=== PATIENT | female | born 1975 | race Caucasian/White ===

== ENCOUNTER 2021-04-22 10:03 | Emergency (ER) | payer OTHER, SELFPAY ==
[2021-04-22 10:28] VITALS: BP 139/87; PULSE 81; RESP 14; TEMP 36.6; O2SAT 98; BMI 29.1
[2021-04-22 10:41] LABS: COVID19 -Nasal RAPID POSITIVE (Negative)
--- NOTE | 2021-04-22 10:50 | ED_ITS ---
HPI - URI/Sore Throat General Chief Complaint: Upper Respiratory Symptoms Stated Complaint: COVID SYMPTOMS Time Seen by Provider: 04/22/21 10:41 Source: patient Mode of arrival: Family Vehicle Limitations: no limitations History of Present Illness HPI Narrative: Patient is a 46-year-old female with history of hypertension, diabetes is unvaccinated for COVID-19 presenting for concern for COVID. She states that her parents were both tested positive yesterday. She was with them 1 week ago. She started having headache 2 days ago. No cough or shortness of breath. She denies any fever or chills. Related Data Allergies Allergy/AdvReac Type Severity Reaction Status Date / Time No Known Drug Allergies Allergy Verified 04/22/21 10:28 Review of Systems Review of Systems Narrative: GENERAL: Denies chills,fever HEENT: Denies throat pain RESPIRATORY: Denies dyspnea, cough, wheezing CARDIOVASCULAR: Denies chest pain, palpitations GASTROINTESTINAL: Denies nausea, vomiting MUSCULOSKELETAL: Denies extremity pain, injury SKIN: No rash, no laceration, no pruritus NEUROLOGIC: + headache, no numbness tingling or weakness 8 point review of systems is negative except for those stated above and HPI Patient History Social History Smoking Status: Never smoker Smoking Status: Never smoker alcohol intake frequency: 0-2 drinks per day Substance Use Type: does not use Exam Initial Vital Signs Initial Vital Signs: Vital Signs Temperature 97.8 F 04/22/21 10:28 Pulse Rate 81 04/22/21 10:28 Respiratory Rate 14 04/22/21 10:28 Blood Pressure 139/87 04/22/21 10:28 Pulse Oximetry 98 04/22/21 10:28 GENERAL: Well-appearing, well-nourished and in no acute distress. CARDIOVASCULAR: peripheral pulses in tact, cap refill <2 sec RESPIRATORY: No respiratory distress, speaks in full sentences without difficulty EXTREMITIES: Normal range of motion, no clubbing or edema. Neurovascularly intact NEUROLOGICAL: Cranial nerves II through XII grossly intact. Normal gait and speech. SKIN: Warm, dry, no petechiae, no rashes or lesions. Course Orders Ordered: ED Orders 04/22/21 10:15 COVID19 -Nasal swab/Pre-Proc Stat Vital Signs Vital signs: Vital Signs - 8 hr 04/22/21 10:28 04/22/21 11:16 Temperature 97.8 F Pulse Rate 81 76 Respiratory Rate 14 14 Blood Pressure 139/87 160/93 H Pulse Oximetry 98 98 MDM - URI/Sore Throat Lab Data Labs: Lab Results 04/22/21 Range/Units 10:15 SARS-CoV-2 (PCR) Positive H (Negative) MDM Narrative Medical decision making narrative: Patient is positive for COVID O2 sat greater than 90%. I discussed with her home monitoring and when to return to the emergency department Discharge Plan Departure Patient Disposition: Home Clinical Impression: COVID-19 Instructions: DI for COVID-19 (Suspected or Confirmed ) Activity Restrictions/Additional Instructions: YOU HAVE BEEN DIAGNOSED WITH COVID 19 * if you have not yet been vaccinated is still recommended and encouraged that you do so once your infection has passed At home: -Monitor oxygen with pulse oximeter. -Wash hands frequently. -Stay isolated at home please follow the isolation instructions below. -Increase fluid intake. -you may take Tylenol as directed if needed for pain or fever Emergency warning signs for COVID-19: - Difficulty breathing or shortness of breath, oxygen less than 90% - Persistent pain or pressure in the chest - New confusion or inability to arouse - Bluish lips or face CDC Guidelines for home isolation: - Stay away from others - Limit contact with pets and animals: If you must care for a pet, wash your hands before and after interacting with them - Wear a mask while in public all places - Cover your mouth and nose with a tissue when you cough or sneeze. Dispose of tissues in a lined trash can and wash your hands immediately with soap and water for at least 20 seconds. If soap and water are not available, clean hands with alcohol-based hand engine generator assembler that contains at least 60% alcohol. - Clean your hands often with soap and water for at least 20 seconds - Avoid touching your eyes, nose and mouth with unwashed hands - Do not share dishes, drinking glasses, cups, eating utensils, towels, or bedding with other people in your home. After using these items, wash them thoroughly with soap and water or put in the counselor at law. - Clean high-touch surfaces in your isolation area (?sick room? and bathroom) every day; let a caregiver clean and disinfect high-touch surfaces in other areas of the home. Clean the area or item with soap and water or another detergent if it is dirty. Then, use a household disinfectant. Referrals: Gilda Ortega DO [Primary Care Provider] -
[2021-04-22 11:16] VITALS: BP 160/93; PULSE 76; RESP 14; O2SAT 98
== END 2021-04-22 11:17 | disposition home or self-care (01) ==
PROVIDERS: Emergency Provider Emergency Medicine; PCP Family Medicine
DX: U07.1 COVID-19 (principal)
CPT/HCPCS: 87635; 99282; C9803

== ENCOUNTER 2021-07-29 10:55 | Emergency (ER) | payer OTHER, SELFPAY ==
[2021-07-29 11:32] VITALS: TEMP 37.1; BMI 29.2
[2021-07-29 11:38] VITALS: BP 146/85; PULSE 92; RESP 18; TEMP 37.1; O2SAT 100; BMI 29.2
--- NOTE | 2021-07-29 12:59 | PC.NURSE ---
pt is followed by her OB for pain and discomfort and cervical issues. pt states she is prescribed pain meds and a muscle relaxer has not taken any today, but took them yesterday with no relief. pain is worse on the RL abd area and radiating to the R groin
--- NOTE | 2021-07-29 13:10 | ED.GENADULT ---
HPI - General Adult General Chief complaint: Abdominal Pain Stated complaint: pain from lower stomach all the way around Time Seen by Provider: 07/29/21 13:06 Source: patient Mode of arrival: Family Vehicle Limitations: no limitations History of Present Illness HPI narrative: 46-year-old woman with minimal medical history presents with back and low abdominal pain. She initially had some lower abdominal pain and bloating in April of this year. Her doctor at the [facility] did basic blood work pelvic ultrasound treated her with antibiotics and felt that perhaps there is a varicose vein to her cervix that was being irritated. After the antibiotics she notes that she had some vaginal dryness but her pain has returned. Six days ago she began noticing some low abdominal swelling and complaints of her back hurting with the pain being the right flank lower rib area on the right side radiating into the right lower quadrant. Her provider gave her a prescription for cyclobenzaprine and Percocet which has helped somewhat but she is continuing to have significant pain. She has been using stretching, gentle exercise, icing nonsteroidals still not improving. She notes that she is on oral control pills has stopped over the last 2 weeks(she is not currently sexually active) did not have significant withdrawal bleeding and this did not seem to influence any of her pain. She describes no constipation or diarrhea. She is not vomiting or nauseated. No chest pain, palpitation or dyspnea. Of note she did have COVID at the end of March. Related Data Previous Rx's Medication Instructions Recorded polyethylene glycol 3350 17 17 g PO DAILY #510 g 07/29/21 gram/dose oral powder Allergies Allergy/AdvReac Type Severity Reaction Status Date / Time No Known Drug Allergies Allergy Verified 07/29/21 11:32 Review of Systems Review of Systems Narrative: Remainder of complete review of systems is otherwise unremarkable except for that included in the HPI. Patient History Social History Smoking Status: Never smoker Smoking Status: Never smoker alcohol intake frequency: a few times a month Substance Use Type: does not use Exam Narrative Exam Narrative: General: Healthy appearing, in mild distress, is unable to stand up straight secondary to pain and has an antalgic gait. Able to give a complete and coherent history. Well-nourished well-developed HEENT: Moist mucous membranes, normal sclera with reactive pupils, Neck: No JVD, supple Respiratory: Lungs are clear to auscultation, no wheezing no rales no rhonchi. Full and symmetrical air movement Cardiac: Regular rate and rhythm no murmurs no bruits Abdomen: Soft, tender right posterior ribs, rightflank left lower quadrant without rebound or guarding. No specific epigastric or right upper quadrant pain no left-sided abdominal pain. Skin: Warm and dry, no rashes Neurologic: Grossly neurologically intact with no obvious asymmetries or abnormalities Extremities: No trauma, well perfused Psych: Cooperative, appropriate insight and affect Initial Vital Signs Initial Vital Signs: Vital Signs Temperature 98.7 F 07/29/21 11:32 Course Orders Ordered: ED Orders 07/29/21 13:24 CT abdomen pelvis w con Stat Urinalysis and Microscopic Stat 07/29/21 13:45 Complete Blood Count AUTO DIFF Stat Comprehensive Metabolic Panel Stat Discontinued Medications Sodium Chloride (Normal Saline 0.9%) 1,000 mls @ 1,000 mls/hr IV BOLUS ONE Stop: 07/29/21 14:22 Last Admin: 07/29/21 13:55 Dose: 1,000 mls/hr Documented by: AMBROSE Ketorolac Tromethamine (Ketorolac 30 Mg/Ml Vial) 15 mg IV NOW ONE Stop: 07/29/21 13:24 Last Admin: 07/29/21 13:56 Dose: 15 mg Documented by: AMBROSE Vital Signs Vital signs: Vital Signs - 8 hr 07/29/21 11:32 07/29/21 11:38 Temperature 98.7 F 98.7 F Pulse Rate 92 H Respiratory Rate 18 Blood Pressure 146/85 H Pulse Oximetry 100 Medical Decision Making Lab Data Result diagrams: 07/29/21 13:45 07/29/21 13:45 Labs: Lab Results 07/29/21 07/29/21 Range/Units 13:45 13:45 WBC 7.3 (4.5-11.0) X10^3/uL RBC 4.51 (4.0-5.2) X10^6/uL Hgb 13.8 (12.0-16.0) g/dL Hct 41.0 (36-46) % MCV 90.9 (80-100) fL MCH 30.5 (26-34) PG MCHC 33.6 (30-36) % RDW 13.6 (11.6-14.8) % Plt Count 248 (150-400) X10^3/uL Neut % (Auto) 49.1 L (50-75) % Lymph % (Auto) 41.5 H (25-40) % [place] % (Auto) 8.0 (3-14) % Eos % (Auto) 0.9 L (2-4) % Baso % (Auto) 0.5 (0-2) % Neut # (Auto) 3600 (1251-6367) /uL Lymph # (Auto) 3000 (6227-2715) /uL [place] # (Auto) 600 (0-900) /uL Eos # (Auto) 100 (0-450) /uL Baso # (Auto) 0 (0-100) /uL Sodium 137 (137-145) mmol/L Potassium 4.2 (3.4-5.1) mmol/L Chloride 102 (98-107) mmol/L Carbon Dioxide 31 (22-32) mmol/L BUN 15 (7-17) mg/dL Creatinine 0.61 (0.52-1.04) mg/dL Estimated GFR > 60.0 (>60) mL/min BUN/Creatinine Ratio 24.6 H (6-22) Glucose 149 H (70-100) mg/dL Calcium 9.6 (8.4-10.2) mg/dL Total Bilirubin 0.3 (0.2-1.3) mg/dL AST 32 (14-36) IU/L ALT 48 H (<35) IU/L Alkaline Phosphatase 42 (38-126) U/L Total Protein 7.0 (6.3-8.2) g/dL Albumin 4.1 (3.5-5.0) g/dL Globulin 2.9 (1.7-4.1) g/dL Albumin/Globulin Ratio 1.4 (1.0-2.8) Imaging Data CT scan - abdomen/pelvis: Radiologist's Impression: FINDINGS:? Image quality:? Excellent.? ? Lung bases:? There is mild dependent atelectasis bilaterally.? ? Heart:? No significant findings. ? ? ABDOMEN: Liver:? Unremarkable.? ? Gallbladder:? There are gallstones within the gallbladder fundus without wall thickening or pericholecystic fat stranding. Biliary ducts:? Unremarkable.? ? Pancreas:? Unremarkable.? ? Spleen:? Unremarkable.? ? Adrenal Glands:? Unremarkable.? ? Kidneys and Ureters:? Unremarkable.? ? ? Stomach and Bowel:? Stomach, small bowel loops, and colon are normal in caliber and wall thickness.? The appendix is normal in appearance.? There is a moderate amount of colonic stool throughout the colon which may reflect constipation. Peritoneum:? No abnormal intraperitoneal fluid.? No free air.? ? Ventral Wall: ? No hernia.? Abdominal Nodes:? No retroperitoneal or mesenteric adenopathy by size criteria.? Vessels:? Aorta and inferior vena cava are normal in size.? ? PELVIS: Pelvic Organs:? Unremarkable.? ? Bladder:? Unremarkable.? ? Pelvic Nodes: No enlarged lymph nodes.? Miscellaneous: No inguinal hernias are seen. ? ? ? Bones:? Unremarkable.? IMPRESSION:? ? 1.? Cholelithiasis without CT evidence of acute cholecystitis.? If clinical concern persists, further evaluation may be obtained with ultrasound. ? 2. No evidence of appendicitis.? ? ? Dictated by: Fan Johnston M.D. on 07/29/2021 at 13:48? ?? MDM Narrative Medical decision making narrative: 46-year-old woman with abdominal, pelvic, back pain with bloating that is been problematic for the last 3-4 months. Labs are reassuring CT scan shows no significant pathology aside from moderate stool load. No evidence of kidney stones, tumors or masses, no labral extra light abnormalities no intra-abdominal infection. Discussed findings with patient. Will send her home with a bottle of magnesium citrate and then have her follow-up with a month of daily 17 g of MiraLax and see how her body adjusts and see if the chronic abdominal pain improved significantly. She will follow-up with her primary care physician as well. She is safe for home discharge Discharge Plan Departure Patient Disposition: Home Clinical Impression: Abdominal pain, Constipation Instructions: DI for Constipation Activity Restrictions/Additional Instructions: Thank you for coming in today Your exam did suggest moderately significant abdomen. Your blood work was very reassuring there is no evidence of infection. Your CT scan does not show any masses or tumors. There is no infections specifically no appendicitis or diverticulitis. Your liver pancreas and gallbladder are all reassuring we normal. You were noted to have quite a bit of stool throughout your entire colon and this may be causing some of your pain. I am sending you home with a bottle of magnesium citrate, please drink this entire bottle when you get home today and expect quite a bit of stool to follow. Once you have cleaned out your colon with the magnesium citrate, I am going to suggest that you use 17 g (1 packet or 1 cap full) of MiraLax/polyethylene glycol daily in a large glass of water juice, coffee or tea to keep stool soft and prevent yourself from getting constipated to the point that your having abdominal pain. If you have new or worsening symptoms, please feel free to return to the ER Prescriptions: New polyethylene glycol 3350 17 gram/dose powder 17 g PO DAILY Qty: 510 0RF Referrals: Gilda Ortega DO [Primary Care Provider] -
--- NOTE | 2021-07-29 13:24 | DI.CT.S_ITS ---
PROCEDURE: CT ABDOMEN PELVIS W CON INDICATIONS: Right-sided flank, right lower quadrant and abdominal pain TECHNIQUE: After the administration of oral and IV contrast, axial sections were acquired from the lung bases to the pubic symphysis. Coronal and sagittal reformats were performed. For radiation dose reduction, the following was used: automated exposure control, adjustment of mA and/or kV according to patient size. COMPARISON: None. FINDINGS: Image quality: Excellent. Lung bases: There is mild dependent atelectasis bilaterally. Heart: No significant findings. ABDOMEN: Liver: Unremarkable. Gallbladder: There are gallstones within the gallbladder fundus without wall thickening or pericholecystic fat stranding. Biliary ducts: Unremarkable. Pancreas: Unremarkable. Spleen: Unremarkable. Adrenal Glands: Unremarkable. Kidneys and Ureters: Unremarkable. Stomach and Bowel: Stomach, small bowel loops, and colon are normal in caliber and wall thickness. The appendix is normal in appearance. There is a moderate amount of colonic stool throughout the colon which may reflect constipation. Peritoneum: No abnormal intraperitoneal fluid. No free air. Ventral Wall: No hernia. Abdominal Nodes: No retroperitoneal or mesenteric adenopathy by size criteria. Vessels: Aorta and inferior vena cava are normal in size. PELVIS: Pelvic Organs: Unremarkable. Bladder: Unremarkable. Pelvic Nodes: No enlarged lymph nodes. Miscellaneous: No inguinal hernias are seen. Bones: Unremarkable. IMPRESSION: 1. Cholelithiasis without CT evidence of acute cholecystitis. If clinical concern persists, further evaluation may be obtained with ultrasound. 2. No evidence of appendicitis. Dictated by: Fan Johnston M.D. on 07/29/2021 at 13:48 Approved by: Fan Johnston M.D. on 07/29/2021 at 13:50
[2021-07-29] MEDS: SODIUM CHLORIDE 0.9% 1,000 ML 1000 ML IV (13:55)
[2021-07-29] MEDS: KETOROLAC 30 MG/ML VIAL 15 MG IV (13:56)
[2021-07-29 14:05] LABS: Add Manual Diff / Slide Review NO; Basophils Absolute Auto 0 /uL (0-100); Basophils Percent Auto 0.5 % (0-2); Eosinophils Absolute Auto 100 /uL (0-450); Eosinophils Percent Auto 0.9 % (2-4); Hemoglobin 13.8 g/dL (12.0-16.0); Lymphocytes Absolute Auto 3000 /uL (1100-4500); Lymphocytes Percent Auto 41.5 % (25-40); Mean Corpuscular HGB Conc 33.6 % (30-36); Mean Corpuscular Hemoglobin 30.5 PG (26-34); Mean Corpuscular Volume 90.9 fL (80-100); Monocytes Absolute Auto 600 /uL (0-900); Neutrophils Absolute Auto 3600 /uL (1500-7000); Neutrophils Percent Auto 49.1 % (50-75); Platelet Count 248 X10^3/uL (150-400); Red Blood Cell Count 4.51 X10^6/uL (4.0-5.2); Red Cell Distribution Width 13.6 % (11.6-14.8); White Blood Cell Count 7.3 X10^3/uL (4.5-11.0)
[2021-07-29 14:18] LABS: Alanine Aminotransferase 48 IU/L (<35); Albumin 4.1 g/dL (3.5-5.0); Albumin Globulin Ratio 1.4 (1.0-2.8); Alkaline Phosphatase 42 U/L (38-126); Aspartate Aminotransferase 32 IU/L (14-36); BUN Creatinine Ratio 24.6 (6-22); Bilirubin Total 0.3 mg/dL (0.2-1.3); Blood Urea Nitrogen 15 mg/dL (7-17); Calcium 9.6 mg/dL (8.4-10.2); Carbon Dioxide 31 mmol/L (22-32); Chloride 102 mmol/L (98-107); Estimated Glomerular Filt Rate > 60.0 mL/min (>60); Globulin 2.9 g/dL (1.7-4.1); Glucose 149 mg/dL (70-100); HEMOLYSIS < 15 (0-50); Potassium 4.2 mmol/L (3.4-5.1); Sodium 137 mmol/L (137-145)
[2021-07-29 15:38] VITALS: BP 146/82; PULSE 86; RESP 18; TEMP 36.6; O2SAT 99
--- NOTE | 2021-08-04 16:49 | PC.NURSE ---
[place] NS stop time at 1500
== END 2021-07-29 15:40 | disposition home or self-care (01) ==
PROVIDERS: Emergency Provider Emergency Medicine; PCP Family Medicine
DX: R10.30 Lower abdominal pain, unspecified (principal); K59.00 Constipation, unspecified
CPT/HCPCS: 74177; 80053; 85025; 96361; 96374; 99283; 99284; J1885; Q9967

== ENCOUNTER 2021-12-31 21:06 | Emergency (ER) | payer OTHER, SELFPAY ==
[2021-12-31 21:11] VITALS: BP 191/103; PULSE 87; RESP 18; TEMP 36.6; O2SAT 100; BMI 29.7
[2021-12-31 23:36] VITALS: PULSE 82; O2SAT 99
[2021-12-31 23:37] VITALS: BP 193/99; PULSE 88; RESP 16; O2SAT 100
--- NOTE | 2021-12-31 23:40 | PC.NURSE ---
see triage note
[2022-01-01] VITALS (19 sets, daily range): BP systolic 146–185; BP diastolic 73–99; PULSE 70–99; O2SAT 94–100
--- NOTE | 2022-01-01 00:15 | ED_ITS ---
HPI - Nausea/Vomiting/Diarrhea <Fernanda Green MD - Last Filed: 01/06/22 18:07> General Chief complaint: Nausea/Vomiting/Diarrhea Stated complaint: HEARING HEART BEAT IN EARS DIZZY NAUSEA HEAD CHEST Time Seen by Provider: 12/31/21 23:32 Source: patient Mode of arrival: Ambulatory History of Present Illness HPI Narrative: 46-year-old woman with a history of hypertension since the age of 17, hypothyroidism, diabetes, depression and currently on control pills presents with a constellation of neurologic symptoms. She initially describes a sense of brain fog that she 1st noticed in April that is gotten progressively worse. She also describes having COVID at the end of March,. Five days ago she noticed overall worsening of symptoms and today things were significant enough that she felt coming in for further evaluation was appropriate. Her symptoms include memory loss, hearing her own heartbeat in her ears over the last 24 hours, intermittent nausea, difficulty in focusing her eyes, over the last 12 hours she has developed a headache and well she has been in the emergency department on her stretcher is complaining of stiff neck. She states that she has had word-finding issues to the point where she is unable to complete sentences or complete full thoughts. She describes increasing difficulty with pronunciation. She notes that her symptoms are worse with activity in talking in the seem to subside when she closes her eyes and has a bit of rest are quiet time. She notes over the last 24 hours that nausea and dizziness are getting worse. When asked about balance and walking, she describes years of intermittent episodes ataxia, reports that she has never able to walk in a straight line and tends to ?lean toward the person I am walking with?. Today she notes that her blood pressures have been somewhat erratic. In April she was seen and then diagnosed with an intestinal blockage' that seems to be more chronic and severe constipation rather than an actual bowel obstruction. This ?intestinal blockage? has continued to be problematic for her. Related Data Home Medications Medication Instructions Recorded Confirmed atenolol 25 mg tablet 25 mg PO DAILY 09/25/21 09/25/21 cholecalciferol (vitamin D3) 125 125 mcg PO QWEEK tab 09/25/21 09/25/21 mcg (5,000 unit) tablet levothyroxine 112 mcg tablet 112 mcg PO DAILY 09/25/21 09/25/21 (Synthroid) lisinopril 20 mg tablet 20 mg PO DAILY 09/25/21 09/25/21 metformin 500 mg tablet,extended 500 mg PO BID 09/25/21 09/25/21 release 24 hr norethindrone 1 mg-ethinyl 1 tab PO DAILY 09/25/21 09/25/21 estradiol 35 mcg tablet (Nortrel) venlafaxine 150 mg 150 mg PO DAILY 09/25/21 09/25/21 capsule,extended release 24 hr Previous Rx's Medication Instructions Recorded polyethylene glycol 3350 17 17 g PO DAILY #510 g 07/29/21 gram/dose oral powder meclizine 25 mg tablet 25 mg PO TID PRN #10 tab 01/01/22 ondansetron 4 mg disintegrating 4 mg PO Q8H PRN #10 tab 01/01/22 tablet Allergies Allergy/AdvReac Type Severity Reaction Status Date / Time No Known Drug Allergies Allergy Verified 09/25/21 08:50 Review of Systems <Fernnada Green MD - Last Filed: 01/06/22 18:07> Review of Systems Narrative: Remainder of complete review of systems is otherwise unremarkable except for that included in the HPI. Patient History <Fernanda Green MD - Last Filed: 01/06/22 18:07> Medical History (Updated 01/01/22 @ 11:18 by Elizabeth Bautista DO) Depression Diabetes Hypertension Hypothyroidism (acquired) Social History Smoking Status: Never smoker Smoking Status: Never smoker alcohol intake frequency: a few times a month Substance Use Type: does not use Exam <Fernanda Green MD - Last Filed: 01/06/22 18:07> Initial Vital Signs Initial Vital Signs: Vital Signs Temperature 98 F 12/31/21 21:11 Pulse Rate 87 12/31/21 21:11 Respiratory Rate 18 12/31/21 21:11 Blood Pressure 191/103 H 12/31/21 21:11 Pulse Oximetry 100 12/31/21 21:11 General: Healthy appearing, in no acute distress. Patient is cooperative however speech is nonfluent with word-finding difficulties and difficulty in completing if not process to the end of the sentence HEENT: Moist mucous membranes, normal sclera with reactive pupils, she has no nystagmus and there is pre movement of all extraocular eye muscles, normal pupillary reflexes. Mild lid lag on the left side Neck: No JVD, supple Respiratory: Lungs are clear to auscultation, no wheezing no rales no rhonchi. Full and symmetrical air movement Cardiac: Regular rate and rhythm no murmurs no bruits Abdomen: Soft, nontender, good bowel tones, no flank pain Skin: Warm and dry, no rashes Neurologic: Reported difficulty in focusing her vision but no overt double vision. Tongue protrudes slightly to the left when fully extended, she has no facial droop. No paresthesias, normal reflexes in upper and lower extremities. Difficulty standing still with eyes closed (mild Romberg sign), difficulty with heel-toe walking and mild ataxia that seems to be related to her right lower extremity. She is able to stand and balance on the right leg and then the left leg although both sides are somewhat difficult. Strength is symmetrical throughout Extremities: No trauma, well perfused Psych: Cooperative, appropriate insight and affect <Elizabeth Bautista DO - Last Filed: 01/01/22 14:46> Initial Vital Signs Initial Vital Signs: Vital Signs Temperature 98 F 12/31/21 21:11 Pulse Rate 87 12/31/21 21:11 Respiratory Rate 18 12/31/21 21:11 Blood Pressure 191/103 H 12/31/21 21:11 Pulse Oximetry 100 12/31/21 21:11 Course <Fernanda Green MD - Last Filed: 01/06/22 18:07> Orders Ordered: ED Orders 01/01/22 02:35 Urinalysis and Microscopic Stat 01/01/22 03:23 MR cervical spine wo/w con Stat MR head/brain wo/w con Stat Vital Signs Vital signs: Vital Signs - 8 hr 01/01/22 07:00 01/01/22 07:01 01/01/22 07:30 Pulse Rate 74 72 90 Blood Pressure 162/87 H Pulse Oximetry 95 99 98 01/01/22 11:58 01/01/22 12:00 Pulse Rate 99 H 91 H Blood Pressure 146/88 H 161/85 H Pulse Oximetry 100 98 <DO Debora Del Rio Last Filed: 01/01/22 14:46> Orders Ordered: ED Orders 01/01/22 02:35 Urinalysis and Microscopic Stat 01/01/22 03:23 MR cervical spine wo/w con Stat MR head/brain wo/w con Stat Vital Signs Vital signs: Vital Signs - 8 hr 01/01/22 07:00 01/01/22 07:01 01/01/22 07:30 Pulse Rate 74 72 90 Blood Pressure 162/87 H Pulse Oximetry 95 99 98 01/01/22 11:58 01/01/22 12:00 Pulse Rate 99 H 91 H Blood Pressure 146/88 H 161/85 H Pulse Oximetry 100 98 MDM - Nausea/Vomiting/Diarrhea <Fernanda Green MD - Last Filed: 01/06/22 18:07> Lab Data Result diagrams: 01/01/22 02:10 01/01/22 02:10 Labs: Lab Results 01/01/22 01/01/22 01/01/22 Range/Units 02:10 02:10 02:10 WBC 10.4 (4.5-11.0) X10^3/uL RBC 4.39 (4.0-5.2) X10^6/uL Hgb 13.1 (12.0-16.0) g/dL Hct 39.7 (36-46) % MCV 90.5 (80-100) fL MCH 29.8 (26-34) PG MCHC 32.9 (30-36) % RDW 13.2 (11.6-14.8) % Plt Count 272 (150-400) X10^3/uL Neut % (Auto) 43.2 L (50-75) % Lymph % (Auto) 47.1 H (25-40) % Alexander % (Auto) 8.3 (3-14) % Eos % (Auto) 0.6 L (2-4) % Baso % (Auto) 0.8 (0-2) % Neut # (Auto) 4500 (2817-0107) /uL Lymph # (Auto) 4900 H (7989-9847) /uL Alexander # (Auto) 900 (0-900) /uL Eos # (Auto) 100 (0-450) /uL Baso # (Auto) 100 (0-100) /uL Sodium 138 (137-145) mmol/L Potassium 4.1 (3.4-5.1) mmol/L Chloride 105 (98-107) mmol/L Carbon Dioxide 27 (22-32) mmol/L BUN 11 (7-17) mg/dL Creatinine 0.60 (0.52-1.04) mg/dL Estimated GFR > 60 (>60) mL/min BUN/Creatinine Ratio 18.3 (6-22) Glucose 166 H (70-100) mg/dL Calcium 8.9 (8.4-10.2) mg/dL Total Bilirubin 0.4 (0.2-1.3) mg/dL AST 23 (14-36) IU/L ALT 23 (<35) IU/L Alkaline Phosphatase 57 (38-126) U/L Total Protein 7.1 (6.3-8.2) g/dL Albumin 4.1 (3.5-5.0) g/dL Globulin 3.0 (1.7-4.1) g/dL Albumin/Globulin Ratio 1.4 (1.0-2.8) TSH 0.817 (0.47-4.68) uIU/mL Urine Color Urine Appearance Urine pH (4.5-8.0) Ur Specific [place] (1.000-1.035) Urine Protein (Negative) Urine Glucose (UA) (Negative) g/dL Urine Ketones (NEGATIVE) Urine Occult Blood (Negative) Urine Nitrate (Negative) Urine Bilirubin (NEGATIVE) Urine Urobilinogen (0.2) E.U./dL Ur Leukocyte Esterase (NEGATIVE) Urine RBC (0-5/HPF) Urine WBC (0-5/HPF) Ur Squamous Epith Cells (0-5/HPF) Urine Bacteria (None) Ur Culture Indicated? 01/01/22 Range/Units 02:35 WBC (4.5-11.0) X10^3/uL RBC (4.0-5.2) X10^6/uL Hgb (12.0-16.0) g/dL Hct (36-46) % MCV (80-100) fL MCH (26-34) PG MCHC (30-36) % RDW (11.6-14.8) % Plt Count (150-400) X10^3/uL Neut % (Auto) (50-75) % Lymph % (Auto) (25-40) % Alexander % (Auto) (3-14) % Eos % (Auto) (2-4) % Baso % (Auto) (0-2) % Neut # (Auto) (7818-2347) /uL Lymph # (Auto) (7809-1192) /uL Alexander # (Auto) (0-900) /uL Eos # (Auto) (0-450) /uL Baso # (Auto) (0-100) /uL Sodium (137-145) mmol/L Potassium (3.4-5.1) mmol/L Chloride (98-107) mmol/L Carbon Dioxide (22-32) mmol/L BUN (7-17) mg/dL Creatinine (0.52-1.04) mg/dL Estimated GFR (>60) mL/min BUN/Creatinine Ratio (6-22) Glucose (70-100) mg/dL Calcium (8.4-10.2) mg/dL Total Bilirubin (0.2-1.3) mg/dL AST (14-36) IU/L ALT (<35) IU/L Alkaline Phosphatase (38-126) U/L Total Protein (6.3-8.2) g/dL Albumin (3.5-5.0) g/dL Globulin (1.7-4.1) g/dL Albumin/Globulin Ratio (1.0-2.8) TSH (0.47-4.68) uIU/mL Urine Color Yellow Urine Appearance Clear Urine pH 6.5 (4.5-8.0) Ur Specific [place] 1.025 (1.000-1.035) Urine Protein Trace H (Negative) Urine Glucose (UA) 1+ H (Negative) g/dL Urine Ketones Negative (NEGATIVE) Urine Occult Blood Trace-intact (Negative) Urine Nitrate Negative (Negative) Urine Bilirubin Negative (NEGATIVE) Urine Urobilinogen 0.2 (0.2) E.U./dL Ur Leukocyte Esterase Negative (NEGATIVE) Urine RBC 0-1/hpf (0-5/HPF) Urine WBC 0-1/hpf (0-5/HPF) Ur Squamous Epith Cells 1-5 /hpf (0-5/HPF) Urine Bacteria Occasional (0-1) (None) Ur Culture Indicated? Cult not indicated MDM Narrative Medical decision making narrative: 46-year-old woman with an interesting constellation symptoms. Multiple Neurologic possibilities including intracranial mass, long COVID with headaches, autonomic and cognitive dysfunction, MS, stroke are all within the differential. At this time I think infectious etiology is less likely and I do not suspect meningitis based on her clinical exam. Lab work and CT scan will be the initial starting point. She may benefit from brain MR given the relatively acute progression of symptoms over the last 4 days with worsening exacerbation the last 12 hours. She does not describe significant difficulties with similar symptoms over previous years. 320am labs and brain CT are unremarkable. Have recommended brain and c spine MR, w and w/o to look for MS as well as subtle cva findings. If MRI is unremarkable, pt will need to follow up with her primary care doctor and may need neurology referral. Will make copies of all labs and radiology reports for patient to take to her PCP <Elizabeth Bauitsta DO - Last Filed: 01/01/22 14:46> Lab Data Labs: Lab Results 01/01/22 01/01/22 01/01/22 Range/Units 02:10 02:10 02:10 WBC 10.4 (4.5-11.0) X10^3/uL RBC 4.39 (4.0-5.2) X10^6/uL Hgb 13.1 (12.0-16.0) g/dL Hct 39.7 (36-46) % MCV 90.5 (80-100) fL MCH 29.8 (26-34) PG MCHC 32.9 (30-36) % RDW 13.2 (11.6-14.8) % Plt Count 272 (150-400) X10^3/uL Neut % (Auto) 43.2 L (50-75) % Lymph % (Auto) 47.1 H (25-40) % Alexander % (Auto) 8.3 (3-14) % Eos % (Auto) 0.6 L (2-4) % Baso % (Auto) 0.8 (0-2) % Neut # (Auto) 4500 (0709-3315) /uL Lymph # (Auto) 4900 H (6939-8296) /uL Alexander # (Auto) 900 (0-900) /uL Eos # (Auto) 100 (0-450) /uL Baso # (Auto) 100 (0-100) /uL Sodium 138 (137-145) mmol/L Potassium 4.1 (3.4-5.1) mmol/L Chloride 105 (98-107) mmol/L Carbon Dioxide 27 (22-32) mmol/L BUN 11 (7-17) mg/dL Creatinine 0.60 (0.52-1.04) mg/dL Estimated GFR > 60 (>60) mL/min BUN/Creatinine Ratio 18.3 (6-22) Glucose 166 H (70-100) mg/dL Calcium 8.9 (8.4-10.2) mg/dL Total Bilirubin 0.4 (0.2-1.3) mg/dL AST 23 (14-36) IU/L ALT 23 (<35) IU/L Alkaline Phosphatase 57 (38-126) U/L Total Protein 7.1 (6.3-8.2) g/dL Albumin 4.1 (3.5-5.0) g/dL Globulin 3.0 (1.7-4.1) g/dL Albumin/Globulin Ratio 1.4 (1.0-2.8) TSH 0.817 (0.47-4.68) uIU/mL Urine Color Urine Appearance Urine pH (4.5-8.0) Ur Specific [place] (1.000-1.035) Urine Protein (Negative) Urine Glucose (UA) (Negative) g/dL Urine Ketones (NEGATIVE) Urine Occult Blood (Negative) Urine Nitrate (Negative) Urine Bilirubin (NEGATIVE) Urine Urobilinogen (0.2) E.U./dL Ur Leukocyte Esterase (NEGATIVE) Urine RBC (0-5/HPF) Urine WBC (0-5/HPF) Ur Squamous Epith Cells (0-5/HPF) Urine Bacteria (None) Ur Culture Indicated? 01/01/22 Range/Units 02:35 WBC (4.5-11.0) X10^3/uL RBC (4.0-5.2) X10^6/uL Hgb (12.0-16.0) g/dL Hct (36-46) % MCV (80-100) fL MCH (26-34) PG MCHC (30-36) % RDW (11.6-14.8) % Plt Count (150-400) X10^3/uL Neut % (Auto) (50-75) % Lymph % (Auto) (25-40) % Alexander % (Auto) (3-14) % Eos % (Auto) (2-4) % Baso % (Auto) (0-2) % Neut # (Auto) (1985-1728) /uL Lymph # (Auto) (5344-3171) /uL Alexander # (Auto) (0-900) /uL Eos # (Auto) (0-450) /uL Baso # (Auto) (0-100) /uL Sodium (137-145) mmol/L Potassium (3.4-5.1) mmol/L Chloride (98-107) mmol/L Carbon Dioxide (22-32) mmol/L BUN (7-17) mg/dL Creatinine (0.52-1.04) mg/dL Estimated GFR (>60) mL/min BUN/Creatinine Ratio (6-22) Glucose (70-100) mg/dL Calcium (8.4-10.2) mg/dL Total Bilirubin (0.2-1.3) mg/dL AST (14-36) IU/L ALT (<35) IU/L Alkaline Phosphatase (38-126) U/L Total Protein (6.3-8.2) g/dL Albumin (3.5-5.0) g/dL Globulin (1.7-4.1) g/dL Albumin/Globulin Ratio (1.0-2.8) TSH (0.47-4.68) uIU/mL Urine Color Yellow Urine Appearance Clear Urine pH 6.5 (4.5-8.0) Ur Specific [place] 1.025 (1.000-1.035) Urine Protein Trace H (Negative) Urine Glucose (UA) 1+ H (Negative) g/dL Urine Ketones Negative (NEGATIVE) Urine Occult Blood Trace-intact (Negative) Urine Nitrate Negative (Negative) Urine Bilirubin Negative (NEGATIVE) Urine Urobilinogen 0.2 (0.2) E.U./dL Ur Leukocyte Esterase Negative (NEGATIVE) Urine RBC 0-1/hpf (0-5/HPF) Urine WBC 0-1/hpf (0-5/HPF) Ur Squamous Epith Cells 1-5 /hpf (0-5/HPF) Urine Bacteria Occasional (0-1) (None) Ur Culture Indicated? Cult not indicated Imaging Data CT scan - head: Radiologist's Impression: Mendoza Law MR#: [id number] : 1975 Acct:[id number] Age/Sex: 46 / F Date of Service: 01/01/22 Loc: ED Accession Number: [id number] ?? Procedure: CT head/brain wo con Ordering Provider: Fernanda Green MD ADDENDUMCORRECTION Corrected on: 01/01/2022; ? ? PROCEDURE:? CT HEAD/BRAIN WO CON ? INDICATIONS:? headache, visual changes, hearing changes, worsening ataxia, ? TECHNIQUE:? Noncontrast 4.5 mm thick angled axial sections acquired from the foramen magnum to the vertex, with coronal and sagittal reformats.? For radiation dose reduction, the following was used:? automated exposure control, adjustment of mA and/or kV according to patient size.? ? COMPARISON:? None. ? FINDINGS:? Image quality:? Excellent.? ? CSF spaces:? Basal cisterns are patent.? No extra-axial fluid collections.? The ventricles are symmetric in size and shape.? ? Brain:? No intracranial bleeds or masses.? There is cerebral volume loss for age, with resultant ventricular and sulcal prominence.? There are periventricular and deep white matter chronic small vessel ischemic changes.? There is intracranial internal carotid artery atherosclerosis.? ? Skull and face:? Calvarium and visualized facial bones appear intact, without suspicious lesions.? ? Sinuses:? Visualized sinuses and mastoids are clear.? ? IMPRESSION:? 1. No acute intracranial abnormality. 2. Cerebral volume loss and small vessel ischemic changes.? ? Comment:? Final report is concordant with preliminary interpretation by [facility] MR head: Radiologist's Impression: Mendoza Law MR#: [id number] : 1975 Acct:[id number] Age/Sex: 46 / F Date of Service: 01/01/22 Loc: ED Accession Number: [id number] ?? Procedure: MR head/brain wo/w con Ordering Provider: Fernanda Green MD PROCEDURE:? MR HEAD/BRAIN WO/W CON ? INDICATIONS:? memory loss, visual changes, ataxia ? TECHNIQUE:? Noncontrast axial T1 spin echo, axial T2 fast spin echo, sagittal and axial FLAIR, coronal T2 fast spin echo, axial gradient echo, axial diffusion and ADC through the brain.? After the administration of contrast, axial and coronal 3D VIBE or T1 spin echo with fat saturation through the brain.? ? COMPARISON:? [facility], MR, MR CERVICAL SPINE WO/W CON, 01/01/2022, 8:19.? [facility], CT, CT HEAD/BRAIN WO CON, 01/01/2022, 2:27. ? FINDINGS:? Image quality:? Excellent.? ? CSF Spaces:? Basal cisterns are patent.? No extra-axial fluid collections.? Ventricles are normal in size and shape.? ? Brain:? No midline shift.? No intracranial bleeds or masses.? No abnormal intracranial enhancement.? The brainstem appears normal.? Diffusion-weighted images demonstrate no acute ischemic insults.? No chronic ischemic insults.? Normal intravascular flow voids are present.? Note is made of a cavum septum pellucidum.? When discovered in isolation, this is considered to be a developmental variant of no clinical consequence.? A mild left cerebellar is incidentally series 15 image ? Skull and face:? Calvarial marrow is normal in signal.? Orbits appear normal.? ? Sinuses:? Sinuses and mastoids appear clear.? IMPRESSION:? ? No imaging explanation is found for this patient's presenting symptoms.? ? No findings of acute or subacute infarction can be seen. ? No masses or abnormal enhancement can be seen.? ? ? Dictated by: Kamaljit Porter M.D. on 01/01/2022 at 8:27 ? ? Approved by: Kamaljit Porter M.D. on 01/01/2022 at 8:29 ? MR cervical: Radiologist's Impression: Signed Patient: Mendoza Law MR#: [id number] : 1975 Acct:[id number] Age/Sex: 46 / F Date of Service: 01/01/22 Loc: ED Accession Number: [id number] ?? Procedure: MR cervical spine wo/w con Ordering Provider: Fernanda Green MD PROCEDURE:? MR CERVICAL SPINE WO/W CON ? INDICATIONS:? memory loss, visual changes, ataxia ? TECHNIQUE:? Noncontrast sagittal T1 spin echo and T2 fast spin echo, sagittal STIR, foraminal oblique sagittal T2 fast spin echo, axial gradient echo or T2 fast spin echo through the cervical spine.? After the administration of contrast, axial and sagittal T1 spin echo with fat saturation through the cervical spine.? ? COMPARISON:? [facility], MR, MR HEAD/BRAIN WO/W CON, 01/01/2022, 8:19.? [facility], CT, CT HEAD/BRAIN WO CON, 01/01/2022, 2:27. ? FINDINGS:? Image quality:? Motion artifact can be seen. ? Alignment and curvature:? There is normal bony alignment.? ? Marrow:? Marrow is normal in overall signal, without suspicious enhancement.? ? Spinal cord:? Visualized spinal cord has normal size and signal.? No cerebellar tonsillar herniation.? No abnormal intramedullary enhancement.? ? Paraspinous soft tissues:? No paravertebral masses or suspicious enhancement.? ? C2-3:? Normal appearance.? ? C3-4:? No significant abnormality is seen. ? C4-5:? The disc height and disk signal are well-preserved. A mild degree of generalized disc osteophyte complex is seen.? Mild facet joint hypertrophy is seen.? There is moderate right-sided and no left-sided neural foraminal narrowing.? No sig nificant central is seen. ? C5-6:? The disc height and disk signal are well-preserved.? Mild to moderate disc osteophyte complex is seen. Mild facet joint hypertrophy is seen.? There is moderate right-sided and minimal left-sided neural foraminal narrowing. Mild central canal narrowing is seen.? ? C6-7:? No significant abnormality is seen. ? C7-T1:? Level within normal limits. ? ? ? IMPRESSION:? Premature cervical spine degenerative changes are seen, which are worst at the C5-C6 level. ? No abnormal enhancement is seen.? ? ? Dictated by: Kamaljit Porter M.D. on 01/01/2022 at 8:30 ? ? [facility] Narrative Medical decision making narrative: 46-year-old woman with an interesting constellation symptoms. Multiple Neurologic possibilities including intracranial mass, long COVID with headaches, autonomic and cognitive dysfunction, MS, stroke are all within the differential. At this time I think infectious etiology is less likely and I do not suspect meningitis based on her clinical exam. Lab work and CT scan will be the initial starting point. She may benefit from brain MR given the relatively acute progression of symptoms over the last 4 days with worsening exacerbation the last 12 hours. She does not describe significant difficulties with similar symptoms over previous years. 320am labs and brain CT are unremarkable. Have recommended brain and c spine MR, w and w/o to look for MS as well as subtle cva findings. If MRI is unremarkable, pt will need to follow up with her primary care doctor and may need neurology referral. Will make copies of all labs and radiology reports for patient to take to her PCP Michele-received sign-out from Dr. Bales. I have seen evaluated patient myself. MRI scans are negative. Patient states that her biggest symptoms worsen onset dizziness and nausea yesterday. She has had some ongoing issues but nothing quite like yesterday. Her symptoms are still mildly present when she opens her eyes. She says that she can close her eyes and stop at the spinning that when she wakes up and starts moving around it seems to be worse. MRI does not show any evidence of MS or posterior stroke. No other focal deficits. Possible vertigo. I discussed all findings with the patient , Education has been performed regarding treatment plan, diagnosis, warning signs and symptoms and all concerns have been addressed. Verbally agree with and understood all of the above. Discharge Plan Departure Patient Disposition: Home Clinical Impression: Vertigo Instructions: Benign Paroxysmal Positional Vertigo Activity Restrictions/Additional Instructions: *You have been diagnosed with vertigo *What to do: At this time her workup in the emergency department is negative including MRI of brain and C-spine. Blood work is also reassuring. Symptoms may be related to COVID or new onset of vertigo. *Continue to take medications as directed Meclizine 25 mg every 8 hours if needed for dizziness Zofran 4 mg every 8 hours if needed nausea vomiting *Follow up with your primary care provider in 2-3 days or call [phone] *Return to ER if you should have increasing dizziness falls persistent vomiting weakness numbness tingling or any new, worsening or concerning symptoms Prescriptions: New meclizine 25 mg tablet 25 mg PO TID PRN (Reason: dizziness) Qty: 10 0RF ondansetron 4 mg tablet,disintegrating 4 mg PO Q8H PRN (Reason: nausea and vomiting) Qty: 10 0RF No Action levothyroxine [Synthroid] 112 mcg tablet 112 mcg PO DAILY 0RF cholecalciferol (vitamin D3) 125 mcg (5,000 unit) tablet 125 mcg PO QWEEK 0RF metformin 500 mg tablet extended release 24 hr 500 mg PO BID 0RF atenolol 25 mg tablet 25 mg PO DAILY 0RF venlafaxine 150 mg capsule,extended release 24hr 150 mg PO DAILY 0RF lisinopril 20 mg tablet 20 mg PO DAILY 0RF Nortrel (28) 1-35 mg-mcg tablet 1 tab PO DAILY 0RF polyethylene glycol 3350 17 gram/dose powder 17 g PO DAILY Qty: 510 0RF Referrals: Gilda Ortega DO [Primary Care Provider] -
--- NOTE | 2022-01-01 02:12 | DI.CT.S_ITS ---
PROCEDURE: CT HEAD/BRAIN WO CON INDICATIONS: headache, visual changes, hearing changes, worsening ataxia, TECHNIQUE: Noncontrast 4.5 mm thick angled axial sections acquired from the foramen magnum to the vertex, with coronal and sagittal reformats. For radiation dose reduction, the following was used: automated exposure control, adjustment of mA and/or kV according to patient size. COMPARISON: None. FINDINGS: Image quality: Excellent. CSF spaces: Basal cisterns are patent. No extra-axial fluid collections. The ventricles are symmetric in size and shape. Brain: No intracranial bleeds or masses. There is cerebral volume loss for age, with resultant ventricular and sulcal prominence. There are periventricular and deep white matter chronic small vessel ischemic changes. There is intracranial internal carotid artery atherosclerosis. Skull and face: Calvarium and visualized facial bones appear intact, without suspicious lesions. Sinuses: Visualized sinuses and mastoids are clear. IMPRESSION: 1. No acute intracranial abnormality. 2. Cerebral volume loss and small vessel ischemic changes. Dictated by: Kenneth Araujo M.D. on 01/01/2022 at 8:04 Approved by: Kenneth Araujo M.D. on 01/01/2022 at 8:06
[2022-01-01 02:24] LABS: Add Manual Diff / Slide Review NO; Basophils Absolute Auto 100 /uL (0-100); Basophils Percent Auto 0.8 % (0-2); Eosinophils Absolute Auto 100 /uL (0-450); Eosinophils Percent Auto 0.6 % (2-4); Hematocrit 39.7 % (36-46); Hemoglobin 13.1 g/dL (12.0-16.0); Lymphocytes Absolute Auto 4900 /uL (1100-4500); Lymphocytes Percent Auto 47.1 % (25-40); Mean Corpuscular HGB Conc 32.9 % (30-36); Mean Corpuscular Hemoglobin 29.8 PG (26-34); Mean Corpuscular Volume 90.5 fL (80-100); Monocytes Absolute Auto 900 /uL (0-900); Monocytes Percent Auto 8.3 % (3-14); Neutrophils Absolute Auto 4500 /uL (1500-7000); Neutrophils Percent Auto 43.2 % (50-75); Platelet Count 272 X10^3/uL (150-400); Red Blood Cell Count 4.39 X10^6/uL (4.0-5.2); Red Cell Distribution Width 13.2 % (11.6-14.8); White Blood Cell Count 10.4 X10^3/uL (4.5-11.0)
[2022-01-01 02:29] LABS: Alanine Aminotransferase 23 IU/L (<35); Albumin 4.1 g/dL (3.5-5.0); Albumin Globulin Ratio 1.4 (1.0-2.8); Alkaline Phosphatase 57 U/L (38-126); Aspartate Aminotransferase 23 IU/L (14-36); BUN Creatinine Ratio 18.3 (6-22); Bilirubin Total 0.4 mg/dL (0.2-1.3); Blood Urea Nitrogen 11 mg/dL (7-17); Calcium 8.9 mg/dL (8.4-10.2); Carbon Dioxide 27 mmol/L (22-32); Chloride 105 mmol/L (98-107); Estimated Glomerular Filt Rate > 60 mL/min (>60); Glucose 166 mg/dL (70-100); HEMOLYSIS < 15 (0-50); Potassium 4.1 mmol/L (3.4-5.1); Sodium 138 mmol/L (137-145); Total Protein 7.1 g/dL (6.3-8.2)
[2022-01-01 03:00] LABS: Appearance Urine UA CLEAR; Bilirubin Urine UA NEGATIVE (NEGATIVE); Color Urine UA YELLOW; Glucose Urine UA 1+ g/dL (Negative); Ketones Urine UA NEGATIVE (NEGATIVE); Leukocyte Esterase Urine UA NEGATIVE (NEGATIVE); Nitrite Urine UA NEGATIVE (Negative); Occult Blood Urine UA TRACE-INTACT (Negative); Protein Urine UA TRACE (Negative); Specific Gravity Urine UA 1.025 (1.000-1.035); Urobilinogen Urine UA 0.2 E.U./dL (0.2)
[2022-01-01 03:12] LABS: Thyroid Stimulating Hormone 0.817 uIU/mL (0.47-4.68)
[2022-01-01 03:20] LABS: RBC Urine 0-1/HPF (0-5/HPF); Squamous Epithelial Cell Urine 1-5 /HPF (0-5/HPF); WBC Urine 0-1/HPF (0-5/HPF); pH Urine UA 6.5 (4.5-8.0)
[2022-01-01 03:21] LABS: Bacteria Urine Occasional (0-1); Culture Indicated Urine Cult Not Indicated
--- NOTE | 2022-01-01 03:23 | DI.MRI.S_ITS ---
PROCEDURE: MR HEAD/BRAIN WO/W CON INDICATIONS: memory loss, visual changes, ataxia TECHNIQUE: Noncontrast axial T1 spin echo, axial T2 fast spin echo, sagittal and axial FLAIR, coronal T2 fast spin echo, axial gradient echo, axial diffusion and ADC through the brain. After the administration of contrast, axial and coronal 3D VIBE or T1 spin echo with fat saturation through the brain. COMPARISON: [facility], MR, MR CERVICAL SPINE WO/W CON, 01/01/2022, 8:19. [facility], CT, CT HEAD/BRAIN WO CON, 01/01/2022, 2:27. FINDINGS: Image quality: Excellent. CSF Spaces: Basal cisterns are patent. No extra-axial fluid collections. Ventricles are normal in size and shape. Brain: No midline shift. No intracranial bleeds or masses. No abnormal intracranial enhancement. The brainstem appears normal. Diffusion-weighted images demonstrate no acute ischemic insults. No chronic ischemic insults. Normal intravascular flow voids are present. Note is made of a cavum septum pellucidum. When discovered in isolation, this is considered to be a developmental variant of no clinical consequence. A mild left cerebellar is incidentally series 15 image Skull and face: Calvarial marrow is normal in signal. Orbits appear normal. Sinuses: Sinuses and mastoids appear clear. IMPRESSION: No imaging explanation is found for this patient's presenting symptoms. No findings of acute or subacute infarction can be seen. No masses or abnormal enhancement can be seen. Dictated by: Kamaljit Porter M.D. on 01/01/2022 at 8:27 Approved by: Kamaljit Porter M.D. on 01/01/2022 at 8:29
--- NOTE | 2022-01-01 03:23 | DI.MRI.S_ITS ---
PROCEDURE: MR CERVICAL SPINE WO/W CON INDICATIONS: memory loss, visual changes, ataxia TECHNIQUE: Noncontrast sagittal T1 spin echo and T2 fast spin echo, sagittal STIR, foraminal oblique sagittal T2 fast spin echo, axial gradient echo or T2 fast spin echo through the cervical spine. After the administration of contrast, axial and sagittal T1 spin echo with fat saturation through the cervical spine. COMPARISON: [facility], MR, MR HEAD/BRAIN WO/W CON, 01/01/2022, 8:19. [facility], CT, CT HEAD/BRAIN WO CON, 01/01/2022, 2:27. FINDINGS: Image quality: Motion artifact can be seen. Alignment and curvature: There is normal bony alignment. Marrow: Marrow is normal in overall signal, without suspicious enhancement. Spinal cord: Visualized spinal cord has normal size and signal. No cerebellar tonsillar herniation. No abnormal intramedullary enhancement. Paraspinous soft tissues: No paravertebral masses or suspicious enhancement. C2-3: Normal appearance. C3-4: No significant abnormality is seen. C4-5: The disc height and disk signal are well-preserved. A mild degree of generalized disc osteophyte complex is seen. Mild facet joint hypertrophy is seen. There is moderate right-sided and no left-sided neural foraminal narrowing. No significant central is seen. C5-6: The disc height and disk signal are well-preserved. Mild to moderate disc osteophyte complex is seen. Mild facet joint hypertrophy is seen. There is moderate right-sided and minimal left-sided neural foraminal narrowing. Mild central canal narrowing is seen. C6-7: No significant abnormality is seen. C7-T1: Level within normal limits. IMPRESSION: Premature cervical spine degenerative changes are seen, which are worst at the C5-C6 level. No abnormal enhancement is seen. Dictated by: Kamaljit Porter M.D. on 01/01/2022 at 8:30 Approved by: Kamaljit Porter M.D. on 01/01/2022 at 8:33
== END 2022-01-01 12:00 | disposition home or self-care (01) ==
PROVIDERS: Emergency Medicine; Emergency Provider Emergency Medicine; PCP Family Medicine
DX: R42 Dizziness and giddiness (principal); R11.0 Nausea; R51.9 Headache, unspecified; H53.8 Other visual disturbances
CPT/HCPCS: 36415; 70450; 70553; 72156; 80053; 81001; 84443; 85025; 99284

== ENCOUNTER 2022-12-01 18:38 | Emergency (ER) | payer OTHER, SELFPAY ==
[2022-12-01] VITALS (12 sets, daily range): BP systolic 141–176; BP diastolic 78–92; PULSE 91–107; RESP 17–24; TEMP 37.1; O2SAT 97–99; BMI 28.7
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
[2022-12-01 19:11] LABS: Add Manual Diff / Slide Review NO; Basophils Absolute Auto 0 /uL (0-100); Basophils Percent Auto 0.5 % (0-2); Eosinophils Absolute Auto 100 /uL (0-450); Eosinophils Percent Auto 0.9 % (2-4); Hematocrit 38.8 % (36-46); Hemoglobin 13.1 g/dL (12.0-16.0); Lymphocytes Absolute Auto 2100 /uL (1100-4500); Lymphocytes Percent Auto 27.9 % (25-40); Mean Corpuscular HGB Conc 33.7 % (30-36); Mean Corpuscular Hemoglobin 29.8 PG (26-34); Mean Corpuscular Volume 88.4 fL (80-100); Monocytes Absolute Auto 800 /uL (0-900); Monocytes Percent Auto 10.7 % (3-14); Neutrophils Absolute Auto 4400 /uL (1500-7000); Platelet Count 266 X10^3/uL (150-400); Red Blood Cell Count 4.39 X10^6/uL (4.0-5.2); Red Cell Distribution Width 13.1 % (11.6-14.8); White Blood Cell Count 7.4 X10^3/uL (4.5-11.0)
[2022-12-01] MEDS: SODIUM CHLORIDE 0.9% 1,000 ML 1000 ML IV (19:30)
[2022-12-01 19:31] LABS: Pregnancy Test Serum,Qual Negative (Negative)
[2022-12-01 19:32] LABS: Alanine Aminotransferase 55 IU/L (<35); Albumin 4.2 g/dL (3.5-5.0); Albumin Globulin Ratio 1.3 (1.0-2.8); Alkaline Phosphatase 132 U/L (38-126); Aspartate Aminotransferase 42 IU/L (14-36); BUN Creatinine Ratio 29.8 (6-22); Bilirubin Total 0.2 mg/dL (0.2-1.3); Blood Urea Nitrogen 14 mg/dL (7-17); Calcium 9.4 mg/dL (8.4-10.2); Carbon Dioxide 32 mmol/L (22-32); Chloride 99 mmol/L (98-107); Estimated Glomerular Filt Rate > 60 mL/min (>60); Globulin 3.2 g/dL (1.7-4.1); Glucose 354 mg/dL (70-100); HEMOLYSIS < 15 (0-50); Potassium 3.9 mmol/L (3.4-5.1); Sodium 138 mmol/L (137-145); Total Protein 7.4 g/dL (6.3-8.2)
== END 2022-12-01 21:24 | disposition home or self-care (01) ==
PROVIDERS: Emergency Provider Emergency Medicine; PCP Family Medicine
DX: S80.11XA Contusion of right lower leg, initial encounter (principal); S60.222A Contusion of left hand, initial encounter; S20.212A Contusion of left front wall of thorax, initial encounter; S30.1XXA Contusion of abdominal wall, initial encounter; M25.532 Pain in left wrist; Z79.899 Other long term (current) drug therapy; V89.2XXA Person injured in unspecified motor-vehicle accident, traffic, initial encounter
CPT/HCPCS: 36415; 71260; 73110; 73130; 74177; 80053; 84703; 85025; 96360; 99284; Q9967

== ENCOUNTER → 2023-01-09 13:35 | Outpatient (CLI) | payer OTHER, SELFPAY ==
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
== END ==
PROVIDERS: PCP Family Medicine; Referring Provider Family Medicine; Visit Provider Family Medicine
DX: S69.92XA Unspecified injury of left wrist, hand and finger(s), initial encounter (principal); V89.2XXS Person injured in unspecified motor-vehicle accident, traffic, sequela; M79.2 Neuralgia and neuritis, unspecified; R60.0 Localized edema; R53.1 Weakness
CPT/HCPCS: 73218

== ENCOUNTER → 2023-09-04 18:38 | Outpatient (CLI) | payer OTHER, SELFPAY ==
--- NOTE | 2023-09-04 | DI.MRI.S_ITS ---
PROCEDURE: MR SHOULDER LT WO CON INDICATIONS: Shoulder pain TECHNIQUE: Noncontrast oblique coronal T2 fast spin echo with fat saturation, oblique sagittal T1 spin echo and T2 fast spin echo with fat saturation, axial T1 spin echo and T2 fast spin echo with fat saturation through the shoulder. COMPARISON: None. FINDINGS: Image quality: Excellent. Rotator cuff: Question a small full-thickness tear of the superior fibers of the subscapularis tendon (series 8 image 10). There is mild supraspinatus and infraspinatus tendinosis. No high-grade rotator cuff tendon tear. Sagittal images demonstrate rotator cuff muscle atrophy. Bones and bursae: No bone marrow contusions or fractures. Mild acromioclavicular joint degeneration. The acromion demonstrates conventional anatomy, without an os acromiale. Small subacromial-subdeltoid suggesting mild bursitis. Capsule and soft tissues: There is mild degenerative fraying of the superior labrum. There is mild tendinosis of the intra-articular segment of the long head of the biceps tendon which demonstrates normal location and morphology. The rotator interval appears normal, without fibrosis. The coracohumeral ligament is normal in thickness. IMPRESSION: 1. Question a small full-thickness tear of the superior fibers of the subscapularis tendon. 2. Mild supraspinatus and infraspinatus tendinosis. 3. No rotator cuff muscle atrophy. 4. Mild tendinosis of the intra-articular segment of the long head of the biceps tendon. 5. Mild degenerative fraying of the superior labrum. 6. Mild acromioclavicular arthrosis. Dictated by: Young Marie M.D. on 09/05/2023 at 9:18 Approved by: Young Marie M.D. on 09/05/2023 at 11:17
--- NOTE | 2023-09-04 | DI.MRI.S_ITS ---
PROCEDURE: MR SHOULDER RT WO CON INDICATIONS: shoulder pain TECHNIQUE: Noncontrast oblique coronal T2 fast spin echo with fat saturation, oblique sagittal T1 spin echo and T2 fast spin echo with fat saturation, axial T1 spin echo and T2 fast spin echo with fat saturation through the shoulder. COMPARISON: None. FINDINGS: Image quality: Excellent. Rotator cuff: There is low-grade partial-thickness tear of the supraspinatus tendon involving the bursal surface and footprint. There is also low-grade partial-thickness tear of the infraspinatus tendon involving the footprint. There is moderate subscapularis tendinosis. Question calcific tendinitis of the infraspinatus and subscapularis tendons. Sagittal images demonstrate no rotator cuff muscle atrophy. Bones and bursae: No bone marrow contusions or fractures. No acromioclavicular joint degeneration. The acromion demonstrates conventional anatomy, without an os acromiale. No pathologic subacromial-subdeltoid or subcoracoid bursal fluid is present. Capsule and soft tissues: The superior labrum is irregular at the biceps tendon insertion, compatible with tear. There is mild tendinosis of the intra-articular segment of the long head of the biceps tendon which demonstrates normal location and morphology. The rotator interval appears normal, without fibrosis. The coracohumeral ligament is normal in thickness. IMPRESSION: 1. Low-grade partial-thickness tear of the supraspinatus and infraspinatus tendons. No supraspinatus or infraspinatus muscle atrophy. 2. There is moderate subscapularis tendinosis. Question calcific tendinosis of the infraspinatus and subscapularis tendons. 3. Mild tendinosis of the long head of the biceps. 4. Superior labrum tear at the biceps tendon insertion. Dictated by: Young Marie M.D. on 09/05/2023 at 9:17 Approved by: Young Marie M.D. on 09/05/2023 at 11:03
== END ==
LOC: MRI 18:40
PROVIDERS: PCP Family Medicine; Referring Provider Family Medicine; Visit Provider Family Medicine
DX: M75.111 Incomplete rotator cuff tear or rupture of right shoulder, not specified as traumatic (principal); S43.431A Superior glenoid labrum lesion of right shoulder, initial encounter; M19.012 Primary osteoarthritis, left shoulder; M25.519 Pain in unspecified shoulder
CPT/HCPCS: 73221

== ENCOUNTER → 2023-11-07 18:43 | Outpatient (CLI) | payer OTHER, SELFPAY ==
--- NOTE | 2023-11-07 | DI.MRI.S_ITS ---
PROCEDURE: MR HIP LT WO CON INDICATIONS: Pain in lt hip Radiculopathy, thoracolumbar region TECHNIQUE: Noncontrast coronal T1 spin echo and STIR through the bony pelvis. Coronal and axial T2 fast spin echo with fat saturation, sagittal T1 spin echo, and oblique axial T2 fast spin echo with fat saturation through the hip. COMPARISON: None. FINDINGS: Image quality: Excellent. Bones and joints: Bone marrow of the pelvic ring and proximal femurs show normal signal throughout. No intraosseous lesions or fractures. No avascular necrosis of the femoral head. Disc desiccation and facet hypertrophy are seen in the included lumbar spine. Tendons and ligaments: Mild distal gluteus medius and minimus tendinosis. Suspected low-grade partial tearing at the distal gluteus minimus insertion. The proximal iliotibial band appears intact. The iliopsoas tendon appears intact, without adjacent bursal fluid collections. The origin of the hamstring tendon demonstrates mild tendinosis. The tendons for the direct and indirect heads of the rectus femoris muscle appear intact. Labrum and cartilage: There is nondisplaced tearing of the anterior superior labrum, which appears chronic. Mild partial-thickness cartilage irregularity in the hip with small marginal osteophytes. No significant hip effusion. There is normal morphology of the femoral head and acetabulum. Soft tissues: Visualized muscles demonstrate normal bulk and internal signal. Quadratus femoris muscle demonstrates no internal edema to suggest ischiofemoral impingement. The proximal sciatic neurovascular bundle appears normal adjacent to the hamstring tendons. Pelvic soft tissues demonstrate no acute abnormality. IMPRESSION: 1. Nondisplaced tearing at the anterior superior labrum, which is likely chronic. 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 2. Low-grade partial tearing of the distal left gluteus minimus tendon at the distal insertion superimposed on the gluteus medius and minimus tendinosis. 3. Mild proximal hamstring tendinosis. 4. Mild degenerative changes in the included lumbar spine. Approved by: Gilberto Haque M.D. on 11/10/2023 at 9:45
--- NOTE | 2023-11-07 | DI.MRI.S_ITS ---
PROCEDURE: MR LUMBAR SPINE WO CON INDICATIONS: Pain in lt hip Radiculopathy, thoracolumbar region TECHNIQUE: Noncontrast sagittal T1 spin echo and T2 fast echo, sagittal STIR, and T2 fast spin echo through the lumbar spine. In cases with scoliosis, additional coronal T2 fast spin echo may be performed. COMPARISON: None. FINDINGS: Image quality: Excellent. Alignment and Curvature: There is normal bony alignment. Bone Marrow: Marrow is of normal overall signal. No acute vertebral body compression fractures. Spinal Cord: Conus medullaris terminates at the L1-L2 level. Visualized cord demonstrates normal signal and size. Paraspinous Soft Tissues: No paravertebral masses. T12-L1: Disc bulge. No canal stenosis or foraminal stenosis. L1-L2: Disc bulge. No canal stenosis or foraminal stenosis. L2-L3: Minimal disc bulge. No canal stenosis or foraminal stenosis. L3-L4: Disc bulge. Mild facet hypertrophy. No canal stenosis or foraminal stenosis. L4-L5: Disc bulge. Facet hypertrophy. There is a mild far left lateral disc protrusion which somewhat impinges on the left L4 nerve root in the left foramen. Reference sagittal T2 image 13 of series 2 and axial T2 images 24 and 25 of series 5. No central canal stenosis. L5-S1: Mild central posterior disc protrusion/extrusion of uncertain significance. This does not appear to abut nerve root structures. Facet hypertrophy. No central canal stenosis. No significant foraminal stenosis. IMPRESSION: 1. Underlying lower lumbar facet arthropathy. 2. A mild far lateral left foraminal disc protrusion at L4-L5 somewhat impinges on the left L4 nerve root far laterally. 3. No canal stenosis or significant foraminal stenosis at other levels. Comment: Recommend correlation for presence or absence of left L4 radicular symptoms. Dictated by: Flip Valdez M.D. on 11/10/2023 at 8:53 Approved by: Flip Valdez M.D. on 11/10/2023 at 8:57
== END ==
PROVIDERS: PCP Family Medicine; Referring Provider Family Medicine; Visit Provider Family Medicine
DX: M47.26 Other spondylosis with radiculopathy, lumbar region (principal); M47.27 Other spondylosis with radiculopathy, lumbosacral region; S73.192A Other sprain of left hip, initial encounter; S76.012A Strain of muscle, fascia and tendon of left hip, initial encounter; M25.552 Pain in left hip; M51.16 Intervertebral disc disorders with radiculopathy, lumbar region; M51.17 Intervertebral disc disorders with radiculopathy, lumbosacral region
CPT/HCPCS: 72148; 73721

== ENCOUNTER → 2024-12-22 08:06 | Outpatient (CLI) | payer OTHER, SELFPAY ==
[2024-12-22 09:57] LABS: Hemoglobin A1C% w Est Avg Glu 6.9 % (4.0-6.0)
== END ==
PROVIDERS: PCP Physician Assistant; Referring Provider Physician Assistant; Visit Provider Physician Assistant
DX: E11.65 Type 2 diabetes mellitus with hyperglycemia (principal)
CPT/HCPCS: 36415; 83036